=== PATIENT | male | born 1965 | race African-American/Black ===

== ENCOUNTER 2018-11-06 19:51 | Emergency (ER) | payer BC, OTHER ==
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
[2018-11-06] MEDS ORDERED: oxyCODONE/ACETAMIN 5/325MG TH 2 TAB/BOTTLE PO ONE (22:05)
[2018-11-06] MEDS ORDERED: METHOCARBAMOL 500 MG TAB PO ONE (22:05)
[2018-11-06] MEDS ORDERED: predniSONE 20 MG TAB PO ONE (22:05)
[2018-11-06] MEDS ORDERED: METH-543 PO (22:07)
[2018-11-06] MEDS ORDERED: PRED20TA6 PO (22:07)
[2018-11-06] MEDS ORDERED: OXYC-865 PO (22:07)
[2018-11-06 22:11] VITALS: BP 136/93
== END 2018-11-06 22:12 | disposition home or self-care (01) ==
LOC: ER 20:19
DX: S16.1XXA Strain of muscle, fascia and tendon at neck level, initial encounter (principal); R91.1 Solitary pulmonary nodule
CPT/HCPCS: 72125; 72128; 99284; J7512